=== PATIENT | male | born 1940 | race Caucasian/White ===

== ENCOUNTER 2016-11-08 02:59 | Emergency (ER) | payer MEDICARE ==
[2016-11-08 03:41] LABS: Hematocrit 41 % (42-52); Hemoglobin 13.9 g/dl (14.0-18.0); Mean Corpuscular HGB Conc 34 g/dl (31-36); Mean Corpuscular Hemoglobin 32 pg (27-31); Mean Corpuscular Volume 95 fL (80-94); Mean Platelet Volume 8 um3 (7.4-10.4); Red Blood Count 4.37 10^6/ul (4.0-5.4); Red Cell Distribution Width 13 % (10.5-15); White Blood Count 4.9 10^3/ul (3.5-10.8)
[2016-11-08 03:48] LABS: BUN/Creatinine Ratio 17.3 (8-20); Calcium 8.8 mg/dL (8.6-10.3); EGFR African American 83.9 (>60); EGFR Non-African American 65.3 (>60); Globulin 2.7 g/dL (2-4); Potassium 3.9 mmol/L (3.5-5.0); Total Bilirubin 0.4 mg/dL (0.2-1.0); Total Protein 6.7 g/dL (6.4-8.9)
--- NOTE | 2016-11-08 03:59 | ED ---
Gabriella Reyna Edward, scribed for Gianni Manzanares MD on 11/08/16 at 0319 . Palpitations / Dysrhythmia - HPI Summary HPI Summary: 76 y/o male presents to ED c/o palpitations around 2 hours ago lasting 5 minutes. Pt was resting when it happened. Pt has had episodes like this before but none have been this severe. SHx stent 4 years ago. Associated sx: minor CP in L lateral region. - History of Current Complaint Chief Complaint: EDChestPainROMI Hx Obtained From: Patient Onset/Duration: Sudden Onset, Lasting Minutes, Resolved Character: Fast Associated Signs & Symptoms: Chest Pain - Mild @ L lateral - Allergy/Home Medications Allergies/Adverse Reactions: Allergies Allergy/AdvReac Type Severity Reaction Status Date / Time Shellfish Allergy Allergy Severe GI Upset Verified 11/08/16 03:13 Azithromycin [From Zithromax] Allergy Intermediate See Comment Verified 03:13 PMH/Surg Hx/FS Hx/Imm Hx Endocrine/Hematology History: Reports: Hx Anemia - SLIGHT, B12 INJECTIONS Denies: Hx Anticoagulant Therapy, Hx Diabetes, Hx Thyroid Disease Cardiovascular History: Reports: Hx Coronary Artery Disease - ONE CARDIAC STENT , Hx Hypercholesterolemia - "borderline" Denies: Hx Congestive Heart Failure, Hx Hypertension, Hx Pacemaker/ICD, Other Cardiovascular Problems/Disorders Respiratory History: Reports: Hx Asthma, Hx Pneumonia Denies: Hx Chronic Obstructive Pulmonary Disease (COPD), Other Respiratory Problems/Disorders GI History: Reports: Hx Gastroesophageal Reflux Disease, Hx Hiatal Hernia, Hx Ulcer - AGE 21 Denies: Other GI Disorders History: Reports: Other Problems/Disorders - ,HX HEMATURIA X1, OK NOW Musculoskeletal History: Reports: Hx Tendonitis - WRISTS Denies: Other Musculoskeletal History Sensory History: Reports: Hx Contacts or Glasses - GLASSES, Hx Hearing Aid - x2 , Hx Hearing Problem Opthamlomology History: Reports: Hx Contacts or Glasses - GLASSES Neurological History: Reports: Hx Migraine - occasional occular migraine Denies: Other Neuro Impairments/Disorders Psychiatric History: Denies: Hx Panic Disorder - Surgical History Surgery Procedure, Year, and Place: Cholycystectomy /left inguinal hernia repair , , HEART STENT HAS CARD(PROMUS ELEMENT PLUS SAFE FOR 3T), 2013 TONSILS A CHILD Hx Anesthesia Reactions: No Infectious Disease History: No Infectious Disease History: Denies: Hx Hepatitis, Hx Human Immunodeficiency Virus (HIV), Traveled Outside the [place] in Last 30 Days - Family History Known Family History: Positive: Other - Mother - Breast CA Negative: Cardiac Disease - Social History Alcohol Use: Daily Alcohol Amount: 2-3 drinks a day Hx Substance Use: No Substance Use Type: Reports: None Hx Tobacco Use: Yes Smoking Status (MU): Former Smoker Amount Used/How Often: 1-2 PACKS A DAY FOR 20 YEARS Have You Smoked in the Last Year: No Review of Systems Constitutional: Negative Eyes: Negative ENT: Negative Positive: Palpitations, Chest Pain Respiratory: Negative Gastrointestinal: Negative Genitourinary: Negative Musculoskeletal: Negative Skin: Negative Neurological: Negative Psychological: Normal All Other Systems Reviewed And Are Negative: Yes Physical Exam Triage Information Reviewed: Yes Vital Signs On Initial Exam: Initial Vitals Temp Pulse Resp BP Pulse Ox 97.5 F 64 16 129/65 100 11/08/16 03:00 11/08/16 03:00 11/08/16 03:00 11/08/16 03:00 11/08/16 03:00 Vital Signs Reviewed: Yes Appearance: Positive: Well-Appearing, No Pain Distress Skin: Positive: Warm Head/Face: Positive: Normal Head/Face Inspection Eyes: Positive: MARYBETH ENT: Positive: Hearing grossly normal Neck: Positive: Supple Respiratory/Lung Sounds: Positive: Clear to Auscultation, Breath Sounds Present Cardiovascular: Positive: RRR Abdomen Description: Positive: Nontender, Soft Bowel Sounds: Positive: Present Musculoskeletal: Positive: Strength/ROM Intact Neurological: Positive: Alert, Oriented to Person Place, Time Diagnostics - Vital Signs Vital Signs Temp Pulse Resp BP Pulse Ox 11/08/16 03:00 97.5 F 64 16 129/65 100 - Laboratory Lab Results: Lab Results 11/08/16 11/08/16 11/08/16 Range/Units 03:25 03:25 03:25 WBC 4.9 (3.5-10.8) 10^3/ul RBC 4.37 (4.0-5.4) 10^6/ul Hgb 13.9 L (14.0-18.0) g/dl Hct 41 L (42-52) % MCV 95 H (80-94) fL MCH 32 H (27-31) pg MCHC 34 (31-36) g/dl RDW 13 (10.5-15) % Plt Count 193 (150-450) 10^3/ul MPV 8 (7.4-10.4) um3 Neut % (Auto) 58.5 (38-83) % Lymph % (Auto) 24.6 L (25-47) % Yates % (Auto) 10.1 H (1-9) % Eos % (Auto) 4.8 (0-6) % Baso % (Auto) 2.0 (0-2) % Absolute Neuts (auto) 2.9 (1.5-7.7) 10^3/ul Absolute Lymphs (auto) 1.2 (1.0-4.8) 10^3/ul Absolute Monos (auto) 0.5 (0-0.8) 10^3/ul Absolute Eos (auto) 0.2 (0-0.6) 10^3/ul Absolute Basos (auto) 0.1 (0-0.2) 10^3/ul Absolute Nucleated RBC 0 10^3/ul Nucleated RBC % 0.1 INR (Anticoag Therapy) 0.94 (0.89-1.11) Sodium 136 (133-145) mmol/L Potassium 3.9 (3.5-5.0) mmol/L Chloride 105 (101-111) mmol/L Carbon Dioxide 28 (22-32) mmol/L Anion Gap 3 (2-11) mmol/L BUN 19 (6-24) mg/dL Creatinine 1.10 (0.67-1.17) mg/dL Est GFR ( Amer) 83.9 (>60) Est GFR (Non-Af Amer) 65.3 (>60) BUN/Creatinine Ratio 17.3 (8-20) Glucose 102 H (70-100) mg/dL Lactic Acid (0.5-2.0) mmol/L Calcium 8.8 (8.6-10.3) mg/dL Magnesium 2.0 (1.9-2.7) mg/dL Total Bilirubin 0.40 (0.2-1.0) mg/dL AST 18 (13-39) U/L ALT 14 (7-52) U/L Alkaline Phosphatase 48 (34-104) U/L Troponin I 0.00 (<0.04) ng/mL Total Protein 6.7 (6.4-8.9) g/dL Albumin 4.0 (3.2-5.2) g/dL Globulin 2.7 (2-4) g/dL Albumin/Globulin Ratio 1.5 (1-3) TSH Pending 11/08/16 Range/Units 03:25 WBC (3.5-10.8) 10^3/ul RBC (4.0-5.4) 10^6/ul Hgb (14.0-18.0) g/dl Hct (42-52) % MCV (80-94) fL MCH (27-31) pg MCHC (31-36) g/dl RDW (10.5-15) % Plt Count (150-450) 10^3/ul MPV (7.4-10.4) um3 Neut % (Auto) (38-83) % Lymph % (Auto) (25-47) % Yates % (Auto) (1-9) % Eos % (Auto) (0-6) % Baso % (Auto) (0-2) % Absolute Neuts (auto) (1.5-7.7) 10^3/ul Absolute Lymphs (auto) (1.0-4.8) 10^3/ul Absolute Monos (auto) (0-0.8) 10^3/ul Absolute Eos (auto) (0-0.6) 10^3/ul Absolute Basos (auto) (0-0.2) 10^3/ul Absolute Nucleated RBC 10^3/ul Nucleated RBC % INR (Anticoag Therapy) (0.89-1.11) Sodium (133-145) mmol/L Potassium (3.5-5.0) mmol/L Chloride (101-111) mmol/L Carbon Dioxide (22-32) mmol/L Anion Gap (2-11) mmol/L BUN (6-24) mg/dL Creatinine (0.67-1.17) mg/dL Est GFR ( Amer) (>60) Est GFR (Non-Af Amer) (>60) BUN/Creatinine Ratio (8-20) Glucose (70-100) mg/dL Lactic Acid 0.6 (0.5-2.0) mmol/L Calcium (8.6-10.3) mg/dL Magnesium (1.9-2.7) mg/dL Total Bilirubin (0.2-1.0) mg/dL AST (13-39) U/L ALT (7-52) U/L Alkaline Phosphatase (34-104) U/L Troponin I (<0.04) ng/mL Total Protein (6.4-8.9) g/dL Albumin (3.2-5.2) g/dL Globulin (2-4) g/dL Albumin/Globulin Ratio (1-3) TSH Result Diagrams: 11/08/16 03:25 11/08/16 03:25 Lab Statement: Any lab studies that have been ordered have been reviewed, and results considered in the medical decision making process. - EKG 1 EKG Rhythm: Sinus Rhythm - @ 61 bpm EKG Interpretation: 03:06 Re-Evaluation - Re-Evaluation 1 Re-Evaluation Time: 05:06 - Discussed test results Change: Improved - results d/w pt, ocass pvc Course/Dx - Course Assessment/Plan: 76 y/o male presents to ED c/o palpitations around 2 hours ago lasting 5 minutes. Pt was resting when it happened. Pt has had episodes like this before but none have been this severe. SHx stent 4 years ago. Associated sx : minor CP in L lateral region. EKG at 03:06 shows Sinus Rhythm @ 61 bpm. PT will be d/c home with f/u with PCP. - Diagnoses Provider Diagnoses: Palpitations Discharge - Discharge Plan Condition: Stable Disposition: HOME Patient Education Materials: Palpitations (ED) Referrals: Say Rao MD [Primary Care Provider] - 3 Days (Please f/u in 2-3 days) The documentation as recorded by the Gabriella arrington Edward accurately reflects the service I personally performed and the decisions made by Leighton langley David, MD.
[2016-11-08 05:03] LABS: TSH (Thyroid Stimulating Horm) 1.79 mcIU/mL (0.34-5.60)
[2016-11-08 05:25] VITALS: BP 103/57
== END 2016-11-08 05:26 | disposition home or self-care (01) ==
LOC: ED 02:59
DX: R00.2 Palpitations (principal); I25.10 Atherosclerotic heart disease of native coronary artery without angina pectoris; Z95.5 Presence of coronary angioplasty implant and graft; J45.909 Unspecified asthma, uncomplicated; K21.9 Gastro-esophageal reflux disease without esophagitis; G43.909 Migraine, unspecified, not intractable, without status migrainosus; Z90.49 Acquired absence of other specified parts of digestive tract; Z88.1 Allergy status to other antibiotic agents; Z91.013 Allergy to seafood; Z87.891 Personal history of nicotine dependence
CPT/HCPCS: 36415; 80053; 83605; 83735; 84443; 84484; 85025; 85610; 93005; 99283

== ENCOUNTER 2016-11-30 10:38 | Emergency (ER) | payer MEDICARE ==
[2016-11-30 13:20] VITALS: BP 124/64
[2016-11-30 16:44] LABS: Hematocrit 43 % (42-52); Hemoglobin 14.8 g/dl (14.0-18.0); Mean Corpuscular HGB Conc 34 g/dl (31-36); Mean Corpuscular Hemoglobin 31 pg (27-31); Mean Corpuscular Volume 92 fL (80-94); Mean Platelet Volume 8 um3 (7.4-10.4); Red Blood Count 4.71 10^6/ul (4.0-5.4); Red Cell Distribution Width 13 % (10.5-15); White Blood Count 5.1 10^3/ul (3.5-10.8)
[2016-11-30 19:25] LABS: Erythrocyte Sed Rate 15 mm/Hr (0-40)
--- NOTE | 2016-12-01 14:25 | ED ---
Progress - Progress Note Progress Note: CBC and CRP reviewed CRP minimally elevated other labs pending No change in management Course/Dx - Diagnoses Provider Diagnoses: Rash
[2016-12-01 16:33] LABS: Lyme Disease IgG Ab WB Negative (Negative)
[2016-12-01 22:10] LABS: B. miyamotoi PCR, B Negative (Negative); Babesia divergens/MO-1 Negative (Negative); Babesia ducani Negative (Negative); Ehrlichia ewingii/canis Negative (Negative)
--- NOTE | 2016-12-02 09:08 | ED ---
Progress - Progress Note Progress Note: CBC and CRP reviewed CRP minimally elevated other labs pending No change in management 12/02/16 LYME (+), PATIENT ON DOXYCYCLINE, F/U PCP. Course/Dx - Diagnoses Provider Diagnoses: Rash
--- NOTE | 2016-12-18 11:47 | UC ---
Tatiana Reyna Alfonso, scribed for Margarita Valdez MD on 11/30/16 at 1239 . Skin Complaint HPI - HPI Summary HPI Summary: This patient is a 76 year old M presenting to [facility] with a chief complaint of a rash first noticed last night. The rash is erythematous and started at his lower abdomen. Does not recall tick or other inciting factor. General feeling of unwellness. No fever perse. No sob/ cough, sore throat. Some GI upset, but improved. Symptoms aggravated by nothing. Symptoms alleviated by nothing. Patient reports being outdoors in [place] for the solar eclipse a few days ago. PMHx of CAD (stent). Patients medications reviewed this visit. Patients allergies reviewed this visit. - History of Current Complaint Chief Complaint: UCRash Time Seen by Provider: 11/30/16 12:16 Stated Complaint: RASH Hx Obtained From: Patient Onset/Duration: Sudden Onset, Lasting Days - last night, Still Present Timing: Constant Onset Severity: Moderate Current Severity: Moderate Location: Other - right lower abd Character: Redness Aggravating: Nothing Alleviating: Nothing Associated Signs & Symptoms: Positive: Rash - Allergy/Home Medications Allergies/Adverse Reactions: Allergies Allergy/AdvReac Type Severity Reaction Status Date / Time Shellfish Allergy Allergy Severe GI Upset Verified 11/08/16 03:13 Azithromycin [From Zithromax] Allergy Intermediate See Comment Verified 03:13 Home Medications: Home Medications Rosuvastatin Calcium [Crestor] 11/30/16 [History] Review of Systems Constitutional: Negative - see hpi Skin: Rash - red and right lower abd. Eyes: Negative ENT: Negative Respiratory: Negative Cardiovascular: Negative Gastrointestinal: Other - see hpi Genitourinary: Negative Motor: Negative Neurovascular: Negative Musculoskeletal: Negative Neurological: Negative Psychological: Negative Is Patient Immunocompromised?: No All Other Systems Reviewed And Are Negative: Yes PMH/Surg Hx/FS Hx/Imm Hx Previously Healthy: Yes - healthy with exception as below Cardiovascular History: Cardiac Disease Other History Of: Negative For: Anticoagulant Therapy - Surgical History Surgical History: Yes Surgery Procedure, Year, and Place: Cholycystectomy /left inguinal hernia repair , , HEART STENT HAS CARD(PROMUS ELEMENT PLUS SAFE FOR 3T), 2013 TONSILS A CHILD - Family History Known Family History: Positive: Other - Mother - Breast CA Negative: Cardiac Disease - Social History Alcohol Use: Daily Alcohol Amount: 2-3 drinks a day Substance Use Type: None Smoking Status (MU): Former Smoker Amount Used/How Often: 1-2 PACKS A DAY FOR 20 YEARS Have You Smoked in the Last Year: No When Did the Patient Quit Smoking/Using Tobacco: 1980S - Immunization History Most Recent Tetanus Shot: 10/2011 Physical Exam Triage Information Reviewed: Yes Appearance: Well-Nourished Vital Signs: Initial Vital Signs Temp 97.1 F 11/30/16 11:12 Pulse 61 11/30/16 11:12 Resp 16 11/30/16 11:12 BP 131/72 11/30/16 11:12 Pulse Ox 100 11/30/16 11:12 Vital Signs Reviewed: Yes Eye Exam: Normal ENT Exam: Normal Neck exam: Normal Neck: Positive: No Lymphadenopathy Respiratory Exam: Normal Respiratory: Positive: Other: - no dyspnea, no tachypnea, normal respiratory rate Cardiovascular: Positive: RRR, Other: - good general skin color, good capillary refill Abdomen Description: Positive: Nontender, No Organomegaly, Soft Bowel Sounds: Positive: Present Musculoskeletal Exam: Normal Musculoskeletal: Positive: Strength Intact Neurological Exam: Normal Neurological: Positive: Alert Psychological: Positive: Age Appropriate Behavior Skin: Positive: rashes - Erythematous semi blanching ovoid rash. 22 cm width x 8.5 cm length at the right lower abdomen. Course/Dx - Course Course Of Treatment: Exact dx unclear by physical exam alone. Will check labs, including tick borne illness. F/u PCP highly encouraged. Seek medical attention for worse or new problems in the meantime. Questions as posed answered to the best of my ability. - Diagnoses Provider Diagnoses: Abdominal rash etiology unclear Discharge - Discharge Plan Condition: Stable Disposition: HOME Prescriptions: DOXYcycline CAP(*) [DOXYcycline 100MG CAP(*)] 100 mg PO BID #[id number] cap Patient Education Materials: Lyme Disease (ED), Acute Rash (ED) Referrals: Say Rao MD [Primary Care Provider] - Additional Instructions: Follow up Dr. Rao next week. Follow up Dr. Castillo, routine as planned. Seek medical attention sooner for worse or new problems. You are being tested for tick borne illness, including lyme. Suspicion is high , as such, antibiotics have been ordered for now. The documentation as recorded by the Tatiana arrington Alfonso accurately reflects the service I personally performed and the decisions made by me, Margarita Valdez MD.
== END 2016-11-30 12:50 | disposition home or self-care (01) ==
LOC: UCEAST 10:38
DX: R21 Rash and other nonspecific skin eruption (principal); Z91.013 Allergy to seafood; I51.9 Heart disease, unspecified; Z95.5 Presence of coronary angioplasty implant and graft; Z90.49 Acquired absence of other specified parts of digestive tract; Z88.1 Allergy status to other antibiotic agents; Z87.891 Personal history of nicotine dependence
CPT/HCPCS: 36415; 85025; 85652; 86140; 86617; 86618; 87798; 99212; G0463

== ENCOUNTER 2016-12-26 18:48 | Emergency (ER) | payer MEDICARE ==
[2016-12-26] MEDS ORDERED: Tetan/Diph/Pertus SYR(Tdap)* 0.5 ML SYR(BOOSTRIX) use SYR IM ONE (19:14)
--- NOTE | 2016-12-26 19:23 | UC ---
Skin Complaint HPI - HPI Summary HPI Summary: Patient presents s/p puncture wound to his right forearm, a screwdriver fell and hit his arm. Complains of localized pain at the site, denies any numbness or tingling, states full rom of extremity.Last tetanus unknown. - History of Current Complaint Chief Complaint: UCLaceration Time Seen by Provider: 12/26/16 18:54 Stated Complaint: ARM INJURY Hx Obtained From: Patient Onset/Duration: Sudden Onset Skin Exposure Onset/Duration: Hours Ago Timing: Constant Onset Severity: Mild Current Severity: Mild Location: Discrete - right forearm Aggravating: Touch Alleviating: Nothing Associated Signs & Symptoms: Positive: Negative - Allergy/Home Medications Allergies/Adverse Reactions: Allergies Allergy/AdvReac Type Severity Reaction Status Date / Time Shellfish Allergy Allergy Severe GI Upset Verified 12/26/16 18:57 Azithromycin [From Zithromax] Allergy Intermediate See Comment Verified 18:57 Review of Systems Constitutional: Negative Skin: Other - puncture wound right forearm Eyes: Negative ENT: Negative Respiratory: Negative Cardiovascular: Negative Gastrointestinal: Negative Genitourinary: Negative Motor: Negative Neurovascular: Negative Musculoskeletal: Negative Neurological: Negative Is Patient Immunocompromised?: No All Other Systems Reviewed And Are Negative: Yes PMH/Surg Hx/FS Hx/Imm Hx Previously Healthy: Yes Cardiovascular History: Cardiac Disease Other Cardiovascular History: stents x 2 Other History Of: Negative For: Anticoagulant Therapy - Surgical History Surgical History: Yes Surgery Procedure, Year, and Place: Cholycystectomy /left inguinal hernia repair , , HEART STENT HAS CARD(PROMUS ELEMENT PLUS SAFE FOR 3T), 2013 TONSILS A CHILD - Family History Known Family History: Positive: Other - Mother - Breast CA mother and father had dementia. Negative: Cardiac Disease - Social History Occupation: Employed Part-time Lives: Alone Alcohol Use: Daily Alcohol Amount: 2-3 drinks a day Substance Use Type: None Smoking Status (MU): Former Smoker Amount Used/How Often: 1-2 PACKS A DAY FOR 20 YEARS Have You Smoked in the Last Year: No When Did the Patient Quit Smoking/Using Tobacco: - Immunization History Most Recent Tetanus Shot: 10/2011 Physical Exam Triage Information Reviewed: Yes Appearance: Well-Appearing Vital Signs: Initial Vital Signs Temp 97 F 12/26/16 18:58 Pulse 74 12/26/16 18:58 Resp 17 12/26/16 18:58 BP 124/65 12/26/16 18:58 Pulse Ox 100 12/26/16 18:58 Vital Signs Reviewed: Yes Eye Exam: Normal ENT Exam: Normal Neck exam: Normal Respiratory Exam: Normal Cardiovascular Exam: Normal Abdominal Exam: Normal Bowel Sounds: Positive: Present Musculoskeletal Exam: Normal Skin Exam: Other - right forearm-volar aspect small 1.0 cm superficial puncture wound involving the epithelial tissue and slightly penetrates the dermal tissue. no foreign body noted, and patient did not sence foreign body in the wound, and I was able to inspect a bloodless wound bed. Course/Dx - Course Course Of Treatment: Patient presents with a puncture wound from a screw mixer driver. The wound was cleaned and antibiotic ointment was applied and dsd. Tetanus upated today. Discharge instructions given for wound care, bath or shower as normal, apply antibiotic ointment and dsd daily. Follow up if the area becomes red, warm, painful with drainage. Patient verbalzied understanding. - Differential Diagnoses - Skin Complaint Differential Diagnoses: Other - puncture wound - Diagnoses Provider Diagnoses: puncture wound Discharge - Discharge Plan Condition: Stable Disposition: HOME Patient Education Materials: Puncture Wound (ED) Referrals: Say Rao MD [Primary Care Provider] -
[2016-12-26 19:26] VITALS: BP 124/65
== END 2016-12-26 20:25 | disposition home or self-care (01) ==
LOC: UCEAST 18:48
DX: S51.831A Puncture wound without foreign body of right forearm, initial encounter (principal); W27.0XXA Contact with workbench tool, initial encounter; Y93.9 Activity, unspecified; Y92.9 Unspecified place or not applicable; Z23 Encounter for immunization; I51.9 Heart disease, unspecified; Z95.5 Presence of coronary angioplasty implant and graft; Z90.49 Acquired absence of other specified parts of digestive tract; Z88.1 Allergy status to other antibiotic agents; Z87.891 Personal history of nicotine dependence
CPT/HCPCS: 90715; 99212; G0463